=== PATIENT | male | born 1950 ===

== ENCOUNTER 2021-11-29 05:36 | Outpatient (CLI) | payer OTHER ==
[~2021-11-29] VITALS: Ht 167.6 cm; Wt 89.2 kg
[2021-11-30] MEDS ORDERED: SIMV20TA26 PO (11:17)
[2021-11-30] MEDS ORDERED: ACHD5005 PO (11:17)
[2021-11-30] MEDS ORDERED: MEMA10TA57 PO (11:17)
[2021-11-30] MEDS ORDERED: MELO15TA39 PO (11:17)
[2021-11-30] MEDS ORDERED: SILD50TA48 PO (11:17)
[2021-11-30] MEDS ORDERED: LOSA50TA63 PO (11:17)
[2021-11-30] MEDS ORDERED: DONE10TA41 PO (11:17)
[2021-11-30] MEDS ORDERED: OMEP20CA18 PO (11:17)
== END 2021-11-30 12:04 | disposition home or self-care (01) ==
LOC: PREOP 05:36
PROVIDERS: ATTEND Surgery
DX: Z01.818 Encounter for other preprocedural examination (principal)